=== PATIENT | male | born 1990 | race Hispanic/Latino ===

== ENCOUNTER 2018-02-14 22:00 | Emergency (ER) | payer SELFPAY ==
--- NOTE | 2018-02-14 23:55 | EDPHYS ---
Physician Documentation [facility] Name: Kenny Navarro Age: 27 yrs Sex: Male : 1990 Arrival Date: 02/14/2018 Time: 22:04 Bed 20 Private MD: ED Physician Kevon Campbell HPI: 02/15 07:52 This 27 yrs old Male presents to ER via Ambulatory with complaints of Insect wa Bite. 07:52 the patient presents with a swollen area of the R upper lip. Description: The affected wa area is small, localized, erythematous, swollen. Onset: The symptoms/episode began/occurred yesterday. Possible cause(s): unknown. Associated signs and symptoms: Pertinent positives: swelling, pain. Modifying factors: the symptoms are alleviated by nothing, the symptoms are aggravated by nothing. Severity of symptoms: At their worst the symptoms were mild, in the emergency department the symptoms are unchanged. The patient has not experienced similar symptoms in the past. The patient has not recently seen a physician. Historical: - Allergies: 02/14 22:15 No Known Allergies; tl2 - Home Meds: 22:15 Zantac 300 mg Oral tab 1 tab once daily [Active]; tl2 - PMHx: 22:15 H Pylori; tl2 - PSHx: 22:15 None; tl2 - Immunization history:: Adult Immunizations up to date. - Social history:: Smoking status: Patient uses tobacco products, smokes one-half pack cigarettes per day. - Ebola Screening: : No symptoms or risks identified at this time. - Family history:: not pertinent. - Hospitalizations: : No recent hospitalization is reported. ROS: 02/15 07:54 Constitutional: Negative for fever, chills, and weight loss, Eyes: Negative for injury, wa pain, redness, and discharge, ENT: Negative for injury, pain, and discharge, Neck: Negative for injury, pain, and swelling, Cardiovascular: Negative for chest pain, palpitations, and edema, Respiratory: Negative for shortness of breath, cough, wheezing, and pleuritic chest pain, Abdomen/GI: Negative for abdominal pain, nausea, vomiting, diarrhea, and constipation, Back: Negative for injury and pain, : Negative for injury, bleeding, discharge, and swelling, MS/Extremity: Negative for injury and deformity, Neuro: Negative for headache, weakness, numbness, tingling, and seizure. Skin: Positive for small tender follicular lesion noted R upper lip. tender. All other systems are negative. Exam: 07:55 Constitutional: This is a well developed, well nourished patient who is awake, alert, wa and in no acute distress. Head/Face: Normocephalic, atraumatic. Eyes: Pupils equal round and reactive to light, extra-ocular motions intact. Lids and lashes normal. Conjunctiva and sclera are non-icteric and not injected. Cornea within normal limits. Periorbital areas with no swelling, redness, or edema. ENT: Nares patent. No nasal discharge, no septal abnormalities noted. Tympanic membranes are normal and external auditory canals are clear. Oropharynx with no redness, swelling, or masses, exudates, or evidence of obstruction, uvula midline. Mucous membranes moist. Neck: Trachea midline, no thyromegaly or masses palpated, and no cervical lymphadenopathy. Supple, full range of motion without nuchal rigidity, or vertebral point tenderness. No Meningismus. Chest/axilla: Normal chest wall appearance and motion. Nontender with no deformity. No lesions are appreciated. Cardiovascular: Regular rate and rhythm with a normal S1 and S2. No gallops, murmurs, or rubs. Normal PMI, no JVD. No pulse deficits. Respiratory: Lungs have equal breath sounds bilaterally, clear to auscultation and percussion. No rales, rhonchi or wheezes noted. No increased work of breathing, no retractions or nasal flaring. Abdomen/GI: Soft, non-tender, with normal bowel sounds. No distension or tympany. No guarding or rebound. No evidence of tenderness throughout. Back: No spinal tenderness. No costovertebral tenderness. Full range of motion. MS/ Extremity: Pulses equal, no cyanosis. Neurovascular intact. Full, normal range of motion. Neuro: Awake and alert, GCS 15, oriented to person, place, time, and situation. Cranial nerves II-XII grossly intact. Motor strength 5/5 in all extremities. Sensory grossly intact. Cerebellar exam normal. Normal gait. Psych: Awake, alert, with orientation to person, place and time. Behavior, mood, and affect are within normal limits. 07:55 Skin: lesion(s), noted, and can be described as small tender erythematous follicular lesion R upper lip. Vital Signs: 02/14 22:15 BP 166 / 72; Pulse 77; Resp 18; Temp 98.1(O); Pulse Ox 99% on R/A; Weight 124.74 kg; 2 Height 5 ft. 11 in. (180.34 cm); Pain 2/10; 23:32 BP 125 / 55; Pulse 73; Resp 18; Pulse Ox 98% on R/A; tl2 02/15 00:28 BP 117 / 48; Pulse 79; Resp 18; Pulse Ox 98% on R/A; tl2 02/14 22:15 Body Mass Index 38.35 (124.74 kg, 180.34 cm) tl2 MDM: 02/14 22:30 Patient medically screened. ms 02/15 07:56 Differential diagnosis: follicular lesion. abx. . Data reviewed: vital signs, nurses wa notes. Administered Medications: No medications were administered Disposition: 02/14/18 23:54 Discharged to Home. Impression: Acute facial folliculitis. - Condition is Stable. - Discharge Instructions: Folliculitis. - Prescriptions for Bactrim DS 800- 160 mg Oral Tablet - take 1 tablet by ORAL route every 12 hours for 5 days; 10 tablet. - Medication Reconciliation Form, Thank You Letter, Antibiotic Education, Prescription Opioid Use form. - Follow up: Private Physician; When: 2 - 3 days; Reason: Recheck today's complaints. - Problem is new. - Symptoms have improved. Signatures: Anuja Kiser RN RN [facility] Kevon Campbell MD MD ms Corrections: (The following items were deleted from the chart) 00:30 02/14 23:54 02/14/2018 23:54 Discharged to Home. Impression: Acute facial folliculitis. 2 Condition is Stable. Forms are Medication Reconciliation Form, Thank You Letter, Antibiotic Education, Prescription Opioid Use. Follow up: Private Physician; When: 2 - 3 days; Reason: Recheck today's complaints. Problem is new. Symptoms have improved. wa
--- NOTE | 2018-02-14 23:55 | ER ---
Nurse's Notes [facility] Name: Kenny Navarro Age: 27 yrs Sex: Male : 1990 Arrival Date: 02/14/2018 Time: 22:04 Bed 20 Private MD: Diagnosis: Acute facial folliculitis Presentation: 02/14 22:13 Presenting complaint: Patient states: I have a bite on my upper lip, I noticed tl2 yesterday morning that it was getting bigger. left side of lip appears swollen. Pt denies fever. Transition of care: patient was not received from another setting of care. Onset of symptoms was February 13, 2018. Risk Assessment: Do you want to hurt yourself or someone else? Patient reports no desire to harm self or others. Initial Sepsis Screen: Does the patient meet any 2 criteria? No. Patient's initial sepsis screen is negative. Does the patient have a suspected source of infection? No. Patient's initial sepsis screen is negative. Care prior to arrival: None. 22:13 Method Of Arrival: Ambulatory tl2 22:13 Acuity: ANG 4 tl2 Triage Assessment: 22:15 Bite description: bite sustained to mouth is superficial, was sustained 1 day ago. by tl2 an unknown animal. General: Appears in no apparent distress. uncomfortable, Behavior is calm, cooperative, appropriate for age. Pain: Complains of pain in upper lip. Neuro: Level of Consciousness is awake, alert, obeys commands, Oriented to person, place, time, situation. Cardiovascular: Denies chest pain. Respiratory: Airway is patent Respiratory effort is even, unlabored, Respiratory pattern is regular, symmetrical. GI: No deficits noted. : No deficits noted. Derm: Skin is pink, warm \T\ dry. Abscess located on upper lip is size of tip of pen. Historical: - Allergies: 22:15 No Known Allergies; tl2 - Home Meds: 22:15 Zantac 300 mg Oral tab 1 tab once daily [Active]; tl2 - PMHx: 22:15 H Pylori; tl2 - PSHx: 22:15 None; tl2 - Immunization history:: Adult Immunizations up to date. - Social history:: Smoking status: Patient uses tobacco products, smokes one-half pack cigarettes per day. - Ebola Screening: : No symptoms or risks identified at this time. - Family history:: not pertinent. - Hospitalizations: : No recent hospitalization is reported. Screenin:18 Abuse screen: Denies threats or abuse. Nutritional screening: No deficits noted. tl2 Tuberculosis screening: No symptoms or risk factors identified. Fall Risk None identified. Assessment: 22:15 General: see triage assessment. tl2 23:32 Reassessment: Awaiting orders from . 2 02/15 00:28 Reassessment: Patient appears in no apparent distress at this time. Patient and/or tl2 family updated on plan of care and expected duration. Pain level reassessed. Patient is alert, oriented x 3, equal unlabored respirations, skin warm/dry/pink. Pt verbalized understanding of discharge instructions, need for follow up and prescription usage. Vital Signs: 02/14 22:15 BP 166 / 72; Pulse 77; Resp 18; Temp 98.1(O); Pulse Ox 99% on R/A; Weight 124.74 kg; tl2 Height 5 ft. 11 in. (180.34 cm); Pain 2/10; 23:32 BP 125 / 55; Pulse 73; Resp 18; Pulse Ox 98% on R/A; tl2 02/15 00:28 BP 117 / 48; Pulse 79; Resp 18; Pulse Ox 98% on R/A; tl2 02/14 22:15 Body Mass Index 38.35 (124.74 kg, 180.34 cm) tl2 ED Course: 02/14 22:04 Patient arrived in ED. es 22:15 Triage completed. tl2 22:15 Arm band placed on right wrist. tl2 22:18 Patient has correct armband on for positive identification. Bed in low position. Call tl2 light in reach. Side rails up X 1. 22:30 Kevon Campbell MD is Attending Physician. wa 23:31 Anuja Kiser RN is Primary Nurse. tl2 02/15 00:28 No provider procedures requiring assistance completed. Patient did not have IV access tl2 during this emergency room visit. Administered Medications: No medications were administered Outcome: 02/14 23:54 Discharge ordered by . ms 02/15 00:28 Discharged to home ambulatory. tl2 Condition: stable Discharge instructions given to patient, Instructed on discharge instructions, follow up and referral plans. medication usage, Demonstrated understanding of instructions, follow-up care, medications, Prescriptions given X 1. 00:30 Patient left the ED. tl2 Signatures: Jeannette Stern Taylor RN RN tl2 Kevon Campbell MD MD ms
== END 2018-02-15 00:30 | disposition home or self-care (01) ==
LOC: ER 22:00
DX: L73.8 Other specified follicular disorders (principal); F17.210 Nicotine dependence, cigarettes, uncomplicated
CPT/HCPCS: 99282

== ENCOUNTER 2018-06-13 23:08 | Emergency (ER) | payer SELFPAY ==
[2018-06-14] MEDS ORDERED: IBUPROFEN 400 MG TAB ONE
[2018-06-14] MEDS ORDERED: IBUPROFEN 200 MG TAB PO ONE
--- NOTE | 2018-06-14 00:09 | EDPHYS ---
Physician Documentation [facility] Name: Kenny Navarro Age: 27 yrs Sex: Male : 1990 Arrival Date: 06/13/2018 Time: 23:11 Bed 27 Private MD: None, None ED Physician Ayan Fisher HPI: 06/14 00:00 This 27 yrs old Male presents to ER via Ambulatory with complaints of pm1 Headache, Fever. 02:00 The patient presents with sore throat. The patient describes throat pain as constant. pm1 Onset: The symptoms/episode began/occurred yesterday. Severity of symptoms: in the emergency department the symptoms are actually worse. Modifying factors: The symptoms are alleviated by nothing, the symptoms are aggravated by foods, swallowing, Patient's oral intake status: good Denies contact with similarly ill indivduals. Associated signs and symptoms: Pertinent positives: fever, headache, Pertinent negatives chest pain, cough, earache, nausea, shortness of breath, vomiting. The patient has experienced similar episodes in the past, a few times. The patient has not recently seen a physician. Historical: - Allergies: 06/13 23:19 No Known Allergies; ak1 - Home Meds: 23:19 Zantac 300 mg Oral tab 1 tab once daily [Active]; ak1 - PMHx: 23:19 H Pylori; ak1 - PSHx: 23:19 None; ak1 - Immunization history:: Adult Immunizations unknown. - Social history:: Smoking status: Patient uses tobacco products, smokes one-half pack cigarettes per day. - Ebola Screening: : No symptoms or risks identified at this time. ROS: 06/14 02:00 Eyes: Negative for injury, pain, redness, and discharge. pm1 Neck: Negative for injury, pain, and swelling, Cardiovascular: Negative for chest pain, palpitations, and edema, Respiratory: Negative for shortness of breath, cough, wheezing, and pleuritic chest pain, Abdomen/GI: Negative for abdominal pain, nausea, vomiting, diarrhea, and constipation, Back: Negative for injury and pain, MS/Extremity: Negative for injury and deformity, Skin: Negative for injury, rash, and discoloration. Constitutional: Positive for fever, Negative for poor PO intake. ENT: Positive for sore throat, Negative for ear pain, difficulty swallowing, difficulty handling secretions, hoarseness. Neuro: Positive for headache, Negative for numbness, tingling. Exam: 02:00 Constitutional: This is a well developed, well nourished patient who is awake, alert, pm1 and in no acute distress. Head/Face: Normocephalic, atraumatic. Eyes: Pupils equal round and reactive to light, extra-ocular motions intact. Lids and lashes normal. Conjunctiva and sclera are non-icteric and not injected. Cornea within normal limits. Periorbital areas with no swelling, redness, or edema. 02:00 Neck: Trachea midline, no thyromegaly or masses palpated, and no cervical lymphadenopathy. Supple, full range of motion without nuchal rigidity, or vertebral point tenderness. No Meningismus. Chest/axilla: Normal chest wall appearance and motion. Nontender with no deformity. No lesions are appreciated. Cardiovascular: Regular rate and rhythm with a normal S1 and S2. No gallops, murmurs, or rubs. Normal PMI, no JVD. No pulse deficits. Respiratory: Lungs have equal breath sounds bilaterally, clear to auscultation and percussion. No rales, rhonchi or wheezes noted. No increased work of breathing, no retractions or nasal flaring. Abdomen/GI: Soft, non-tender, with normal bowel sounds. No distension or tympany. No guarding or rebound. No evidence of tenderness throughout. Back: No spinal tenderness. No costovertebral tenderness. Full range of motion. Skin: Warm, dry with normal turgor. Normal color with no rashes, no lesions, and no evidence of cellulitis. MS/ Extremity: Pulses equal, no cyanosis. Neurovascular intact. Full, normal range of motion. 02:00 ENT: External ear(s): are unremarkable, Ear canal(s): are normal, TM's: are normal, Nose: is normal, Mouth: is normal, Posterior pharynx: Airway: no evidence of obstruction, patent, Tonsils: bilaterally enlarged, with erythema, no exudate, no ulcerations, peritonsillar mass, is not appreciated, pooling of secretions, is not appreciated. 02:00 Neuro: Orientation: is normal, Motor: is normal, moves all fours, Gait: is steady, at a normal pace, without difficulty. Vital Signs: 06/13 23:19 BP 151 / 93; Pulse 116; Resp 20; Temp 101.0(O); Pulse Ox 98% on R/A; Weight 127.01 kg ak1 (R); Height 5 ft. 11 in. (180.34 cm) (R); Pain 10; 06/14 00:42 BP 144 / 89; Pulse 103; Resp 20; Temp 99.2; Pulse Ox 99% on R/A; Pain 9/10; aa1 06/13 23:19 Body Mass Index 39.05 (127.01 kg, 180.34 cm) [facility] MDM: 06/13 23:42 Patient medically screened. pm1 06/14 00:08 Data reviewed: vital signs. Data interpreted: Pulse oximetry: on room air is 98 %. pm1 Interpretation: normal. Counseling: I had a detailed discussion with the patient and/or guardian regarding: the historical points, exam findings, and any diagnostic results supporting the discharge/admit diagnosis, lab results, the need for outpatient follow up, to return to the emergency department if symptoms worsen or persist or if there are any questions or concerns that arise at home. 06/13 23:18 Order name: Flu; Complete Time: 00:08 ak1 06/13 23:18 Order name: Strep; Complete Time: 00:08 [facility] Administered Medications: 06/13 23:54 Drug: Ibuprofen 600 mg Route: PO; ak1 06/14 00:31 Follow up: Response: No adverse reaction; Marked relief of symptoms mg2 00:31 Drug: Decadron - Dexamethasone 10 mg {Note: given orally with juice.} Route: IVP; [place] [facility] [place]; 00:31 Follow up: Response: No adverse reaction; Medication administered at discharge. mg2 Disposition: 06/14/18 00:08 Discharged to Home. Impression: Streptococcal pharyngitis. - Condition is Stable. - Discharge Instructions: Strep Throat. - Prescriptions for Amoxicillin 500 mg Oral Capsule - take 1 capsule by ORAL route every 8 hours for 10 days; 30 tablet. - Medication Reconciliation Form, Thank You Letter, Antibiotic Education form. - Follow up: Emergency Department; When: As needed; Reason: Worsening of condition. Follow up: Private Physician; When: 2 - 3 days; Reason: Recheck today's complaints, Continuance of care, Re-evaluation by your physician. - Problem is new. - Symptoms have improved. Addendum: 06/16/2018 04:06 Co-signature as Attending Physician, Ayan Fisher MD. g s Signatures: Dispatcher [employer] Consuelo Osullivan RN RN aa1 Erica Chauhan RN RN ak1 Jerod Rodriguez, SPINNER FIXER SPINNER FIXER pm1 Ayan Fisher MD MD Nilton An RN RN mg2 Corrections: (The following items were deleted from the chart) 06/14 00:43 00:08 06/14/2018 00:08 Discharged to Home. Impression: Streptococcal pharyngitis. aa1 Condition is Stable. Forms are Medication Reconciliation Form, Thank You Letter, Antibiotic Education, Prescription Opioid Use. Follow up: Emergency Department; When: As needed; Reason: Worsening of condition. Follow up: Private Physician; When: 2 - 3 days; Reason: Recheck today's complaints, Continuance of care, Re-evaluation by your physician. Problem is new. Symptoms have improved. pm1
--- NOTE | 2018-06-14 00:09 | ER ---
Nurse's Notes [facility] Name: Kenny Navarro Age: 27 yrs Sex: Male : 1990 Arrival Date: 06/13/2018 Time: 23:11 Bed 27 Private MD: None, None Diagnosis: Streptococcal pharyngitis Presentation: 06/13 23:18 Presenting complaint: Patient states: fever, throat pain, body aches, headache since ak1 Tuesday. pt had Tylenol at 1800. Transition of care: patient was not received from another setting of care. Onset of symptoms was June 12, 2018. Initial Sepsis Screen: Does the patient have a suspected source of infection?. Care prior to arrival: None. 23:18 Acuity: ANG 4 ak1 23:18 Method Of Arrival: Ambulatory ak1 23:30 Risk Assessment: Do you want to hurt yourself or someone else? Patient reports no aa1 desire to harm self or others. Initial Sepsis Screen: Does the patient meet any 2 criteria? Temp <36.0*C (96.8*F)) or > 38.3*C (100.9*F). HR > 90 bpm. Does the patient have a suspected source of infection? No. Patient's initial sepsis screen is negative. Triage Assessment: 23:19 Headache History: The patient has had previous headaches and this one is less severe ak1 than previous episodes. General: Appears uncomfortable, Behavior is cooperative. Pain: Pain currently is 10 out of 10 on a pain scale. Pain began Tuesday Also complains of photophobia, sleeplessness. EENT: Reports throat pain. Neuro: Level of Consciousness is awake, alert, obeys commands, Oriented to person, place, time, situation, Dietary Aide Teacher are equal bilaterally Moves all extremities. Gait is steady, Speech is normal. Cardiovascular: No deficits noted. Respiratory: No deficits noted. GI: No signs and/or symptoms were reported involving the gastrointestinal system. : No signs and/or symptoms were reported regarding the genitourinary system. Derm: Reports fever. Musculoskeletal: Reports body aches. Historical: - Allergies: 23:19 No Known Allergies; ak1 - Home Meds: 23:19 Zantac 300 mg Oral tab 1 tab once daily [Active]; ak1 - PMHx: 23:19 H Pylori; ak1 - PSHx: 23:19 None; ak1 - Immunization history:: Adult Immunizations unknown. - Social history:: Smoking status: Patient uses tobacco products, smokes one-half pack cigarettes per day. - Ebola Screening: : No symptoms or risks identified at this time. Screenin:30 Abuse screen: Denies threats or abuse. Denies injuries from another. Nutritional aa1 screening: No deficits noted. Tuberculosis screening: No symptoms or risk factors identified. Fall Risk None identified. Assessment: 23:30 General: Appears in no apparent distress. uncomfortable, Behavior is calm, cooperative, aa1 appropriate for age. Pain: Complains of pain in throat and head Quality of pain is described as aching, throbbing, Pain began 1 day ago. Is continuous. Neuro: Level of Consciousness is awake, alert, obeys commands, Oriented to person, place, time, situation, Moves all extremities. Full function Gait is steady, Speech is normal, Reports headache. Respiratory: Airway is patent Respiratory effort is even, unlabored, Respiratory pattern is regular, symmetrical. GI: No signs and/or symptoms were reported involving the gastrointestinal system. : No signs and/or symptoms were reported regarding the genitourinary system. EENT: Reports difficulty swallowing pain when swallowing. Derm: Skin is intact, is healthy with good turgor, Skin is pink, warm \T\ dry. Musculoskeletal: Circulation, motion, and sensation intact. Capillary refill < 3 seconds. 06/14 00:42 Reassessment: Patient appears in no apparent distress at this time. Patient is alert, aa1 oriented x 3, equal unlabored respirations, skin warm/dry/pink. Discussed d/c \T\ f/u instructions with pt \T\ family; denies questions or concerns at this time. Vital Signs: 06/13 23:19 BP 151 / 93; Pulse 116; Resp 20; Temp 101.0(O); Pulse Ox 98% on R/A; Weight 127.01 kg ak1 (R); Height 5 ft. 11 in. (180.34 cm) (R); Pain 04/26; 06/14 00:42 BP 144 / 89; Pulse 103; Resp 20; Temp 99.2; Pulse Ox 99% on R/A; Pain 9/10; aa1 06/13 23:19 Body Mass Index 39.05 (127.01 kg, 180.34 cm) ak1 ED Course: 06/13 23:11 Patient arrived in ED. es 23:11 None, None is Private Physician. es 23:19 Triage completed. ak1 23:19 Arm band placed on Patient placed in an exam room, on a stretcher, Patient notified of ak1 wait time. 23:30 Patient has correct armband on for positive identification. Bed in low position. Call aa1 light in reach. Pulse ox on. NIBP on. 23:34 Jerod Rodriguez NP is PHCP. pm1 23:34 Ayan Fisher MD is Attending Physician. pm1 23:57 Consuelo Calzada, BELL is Primary Nurse. aa1 06/14 00:42 No provider procedures requiring assistance completed. Patient did not have IV access aa1 during this emergency room visit. Administered Medications: 06/13 23:54 Drug: Ibuprofen 600 mg Route: PO; ak1 06/14 00:31 Follow up: Response: No adverse reaction; Marked relief of symptoms mg2 00:31 Drug: Decadron - Dexamethasone 10 mg {Note: given orally with juice.} Route: IVP; Site: [facility] [place] Other; 00:31 Follow up: Response: No adverse reaction; Medication administered at discharge. mg2 Outcome: 00:08 Discharge ordered by MD. pm1 00:42 Discharged to home ambulatory, with family. aa1 00:42 Condition: good 00:42 Discharge instructions given to patient, family, Instructed on discharge instructions, follow up and referral plans. medication usage, Demonstrated understanding of instructions, follow-up care, medications, Prescriptions given X 1. 00:43 Patient left the ED. aa1 Signatures: Consuelo Calzada, RN RN aa1 Jeannette Stern Amber, RN RN ak1 Jerod Rodriguez NP LIVESTOCK FEEDER pm1 Nilton An RN RN mg2
[2018-06-14] MEDS ORDERED: DEXAMETHASONE 10 MG/ML VIAL ONE (00:32)
== END 2018-06-14 00:43 | disposition home or self-care (01) ==
LOC: ER 23:08
DX: J02.0 Streptococcal pharyngitis (principal); F17.210 Nicotine dependence, cigarettes, uncomplicated
CPT/HCPCS: 87081; 87804; 96374; 99283; J1100

== ENCOUNTER 2018-06-22 19:16 | Emergency (ER) | payer SELFPAY ==
[2018-06-22] MEDS ORDERED: DIPHENHYDRAMINE 25 MG TAB/CAP ONE (20:28)
[2018-06-22] MEDS ORDERED: METHYLPREDNISOLONE 125 MG INJ ONE (20:28)
[2018-06-22] MEDS ORDERED: NA CHLORIDE 0.9% 1,000 ML ONE (20:28)
[2018-06-22] MEDS ORDERED: FAMOTIDINE 20 MG/2 ML VIAL IV ONE (20:28)
[2018-06-22] MEDS ORDERED: DIPHENHYDRAMINE 50 MG/ML VIAL ONE (20:31)
--- NOTE | 2018-06-22 22:18 | ER ---
Nurse's Notes [facility] Name: Kenny Navarro Age: 27 yrs Sex: Male : 1990 Arrival Date: 06/22/2018 Time: 19:17 Bed 28 Private MD: Diagnosis: Dermatitis, unspecified Presentation: 06/22 19:37 Presenting complaint: Patient states: I have been on amoxicillin since last Tuesday la1 and I started with a rash on Tuesday, now it is very itchy and I feel a little SOB. Transition of care: patient was not received from another setting of care. Onset: The symptoms/episode began/occurred 3 day(s) ago. Anaphylaxis evaluation, the patient reports or I have noted the following symptoms which indicate a significant risk of anaphylaxis:. Onset of symptoms was June 22, 2018. Risk Assessment: Do you want to hurt yourself or someone else? Patient reports no desire to harm self or others. Initial Sepsis Screen: Does the patient meet any 2 criteria? No. Patient's initial sepsis screen is negative. Does the patient have a suspected source of infection? No. Patient's initial sepsis screen is negative. Care prior to arrival: None. 19:37 Method Of Arrival: Ambulatory la1 19:37 Acuity: ANG 3 la1 Historical: - Allergies: 19:38 No Known Allergies; la1 - Home Meds: 20:06 Zantac 300 mg Oral tab 1 tab once daily [Active]; rv - PMHx: 19:38 H Pylori; la1 - PSHx: 20:06 None; rv - Immunization history:: Adult Immunizations up to date. - Social history:: Smoking status: Patient uses tobacco products, smokes one-half pack cigarettes per day. - Ebola Screening: : No symptoms or risks identified at this time. Screenin:05 Abuse screen: Denies threats or abuse. Denies injuries from another. Nutritional rv screening: No deficits noted. Tuberculosis screening: No symptoms or risk factors identified. Fall Risk None identified. Assessment: 20:03 General: Appears in no apparent distress. comfortable, Behavior is calm, cooperative. rv Pain: Denies pain. Neuro: Level of Consciousness is awake, alert, obeys commands, Oriented to person, place, time, situation. Cardiovascular: Capillary refill < 3 seconds. Respiratory: Airway is patent Respiratory effort is even, Breath sounds are clear bilaterally. GI: No signs and/or symptoms were reported involving the gastrointestinal system. : No signs and/or symptoms were reported regarding the genitourinary system. EENT: No signs and/or symptoms were reported regarding the EENT system. Derm: Rash noted that is itchy, papular, red, raised, vesicular. Musculoskeletal: No signs and/or symptoms reported regarding the musculoskeletal system. 21:00 Reassessment: Patient appears in no apparent distress at this time. rv 22:16 Reassessment: Patient appears in no apparent distress at this time. Patient and/or rv family updated on plan of care and expected duration. Pain level reassessed. Vital Signs: 19:38 BP 162 / 115; Pulse 90; Resp 16; Temp 97.5; Pulse Ox 98% on R/A; Weight 127.01 kg; la1 Height 5 ft. 11 in. (180.34 cm); 20:00 BP 159 / 129; Pulse 98; Resp 18; Pulse Ox 100% on R/A; rv 20:30 BP 173 / 104; Pulse 125; Resp 17; Pulse Ox 98% on R/A; rv 20:30 BP 159 / 83; Pulse 87; Resp 16; Pulse Ox 100% on R/A; rv 21:00 BP 148 / 85; Pulse 85; Resp 16; Pulse Ox 100% on R/A; rv 21:30 BP 131 / 72; Pulse 82; Resp 15; Pulse Ox 97% on R/A; rv 22:00 BP 141 / 79; Pulse 77; Resp 17; Pulse Ox 100% on R/A; rv 19:38 Body Mass Index 39.05 (127.01 kg, 180.34 cm) la1 ED Course: 19:17 Patient arrived in ED. es 19:38 Triage completed. la1 19:38 Arm band placed on right wrist. la1 19:40 Ramos Kumar PA is PHCP. cp 19:40 Ayan Fisher MD is Attending Physician. cp 20:06 Patient has correct armband on for positive identification. Placed in gown. Bed in low rv position. Call light in reach. Side rails up X 1. Pulse ox on. NIBP on. 20:15 Inserted saline lock: 20 gauge in left antecubital area, using aseptic technique. rv 22:25 No provider procedures requiring assistance completed. IV discontinued, bleeding rv controlled, No redness/swelling at site. Pressure dressing applied. Administered Medications: 20:15 Drug: SOLU-Medrol 125 mg Route: IVP; Site: left antecubital; rv 22:24 Follow up: Response: No adverse reaction rv 20:15 Drug: Pepcid 20 mg Route: IVP; Site: left antecubital; rv 22:23 Follow up: Response: No adverse reaction rv 20:15 Drug: NS 0.9% 1000 ml Route: IV; Rate: 1 bolus; Site: left antecubital; rv 22:23 Follow up: IV Status: Completed infusion rv 20:15 Drug: Benadryl 50 mg Route: IVP; Site: left antecubital; rv 22:24 Follow up: Response: Marked relief of symptoms rv 20:58 CANCELLED (SHIFTED TO IV): Benadryl 50 mg PO once rv Outcome: 22:17 Discharge ordered by MD. cp 22:25 Discharged to home ambulatory. rv 22:25 Condition: improved 22:25 Discharge instructions given to patient, Instructed on discharge instructions, follow up and referral plans. medication usage, Demonstrated understanding of instructions, follow-up care, medications, Prescriptions given X 3. 22:25 Patient left the ED. rv Signatures: Jeannette Stern Lee, RN RN la1 Ramos Kumar PA PA cp Giovani Worrell, RN RN rv
--- NOTE | 2018-06-22 22:18 | EDPHYS ---
Physician Documentation [facility] Name: Kenny Navarro Age: 27 yrs Sex: Male : 1990 Arrival Date: 06/22/2018 Time: 19:17 Bed 28 Private MD: ED Physician Ayan Fisher HPI: 06/22 20:15 This 27 yrs old Male presents to ER via Ambulatory with complaints of Allergic cp Reaction, Itching, Rash. 20:15 The patient presents with itching, rash, of the right forearm. cp 20:15 Onset: The symptoms/episode began/occurred 6 day(s) ago. cp 20:15 Associated signs and symptoms: Pertinent positives: shortness of breath, Pertinent cp negatives: chest pain, dysphagia, fever, headache, vomiting. Possible causes: antibiotics, amoxicillin. 20:15 At home the patient or guardian has treated the symptoms with calamine lotion. Severity cp of symptoms: in the emergency department the symptoms are worse moderately. Patient reports he has been taking prescribed Amoxicillin for strep throat since last Tuesday. Noticed rash to right forearm 2 days later that has continued to worsen. Reports itching and shortness of breath. Historical: - Allergies: 19:38 No Known Allergies; la1 - Home Meds: 20:06 Zantac 300 mg Oral tab 1 tab once daily [Active]; rv - PMHx: 19:38 H Pylori; la1 - PSHx: 20:06 None; rv - Immunization history:: Adult Immunizations up to date. - Social history:: Smoking status: Patient uses tobacco products, smokes one-half pack cigarettes per day. - Ebola Screening: : No symptoms or risks identified at this time. ROS: 20:20 Constitutional: Negative for body aches, chills, fever. cp 20:20 Eyes: Negative for injury, pain, redness, and discharge. cp 20:20 ENT: Negative for drainage from ear(s), ear pain, sore throat, difficulty swallowing, difficulty handling secretions. 20:20 Respiratory: Positive for shortness of breath, Negative for wheezing. 20:20 Abdomen/GI: Negative for abdominal pain, nausea, vomiting, and diarrhea. 20:20 Skin: Positive for rash. 20:20 Neuro: Negative for altered mental status, headache, weakness. 20:20 All other systems are negative. Exam: 20:25 Constitutional: The patient appears in no acute distress, alert, awake, non-toxic, well cp developed, well nourished. 20:25 Head/Face: Normocephalic, atraumatic. cp 20:25 Eyes: Periorbital structures: appear normal, Pupils: equal, round, and reactive to light and accomodation, Extraocular movements: intact throughout, Conjunctiva: normal, no exudate, no injection, Sclera: no appreciated abnormality, Lids and lashes: appear normal, bilaterally. 20:25 ENT: External ear(s): are unremarkable, Ear canal(s): are normal, clear, TM's: bulging, is not appreciated, bilaterally, dullness, bilaterally, erythema, is not appreciated, bilaterally, Nose: is normal, Mouth: Lips: moist, Oral mucosa: pink and intact, moist, Posterior pharynx: is normal, airway is patent, no erythema, no exudate, Voice: is normal. 20:25 Neck: ROM/movement: is normal, is supple, without pain, no range of motions limitations, no meningismus, no nuchal rigidity. 20:25 Chest/axilla: Inspection: rash, of the left lateral anterior chest Palpation: is normal, no crepitus, no tenderness. 20:25 Cardiovascular: Rate: normal, Rhythm: regular. 20:25 Respiratory: the patient does not display signs of respiratory distress, Respirations: normal, no use of accessory muscles, no retractions, no splinting, no tachypnea, labored breathing, is not present, Breath sounds: are clear throughout, no decreased breath sounds, no stridor, no wheezing. 20:25 Abdomen/GI: Bowel sounds: active, all quadrants, Palpation: abdomen is soft and non-tender, in all quadrants. 20:25 Back: pain, is absent, ROM is normal. 20:25 Skin: cellulitis, is not appreciated, rash can be described as bullous, erythematous, on the right forearm. Vital Signs: 19:38 BP 162 / 115; Pulse 90; Resp 16; Temp 97.5; Pulse Ox 98% on R/A; Weight 127.01 kg; la1 Height 5 ft. 11 in. (180.34 cm); 20:00 BP 159 / 129; Pulse 98; Resp 18; Pulse Ox 100% on R/A; rv 20:30 BP 173 / 104; Pulse 125; Resp 17; Pulse Ox 98% on R/A; rv 20:30 BP 159 / 83; Pulse 87; Resp 16; Pulse Ox 100% on R/A; rv 21:00 BP 148 / 85; Pulse 85; Resp 16; Pulse Ox 100% on R/A; rv 21:30 BP 131 / 72; Pulse 82; Resp 15; Pulse Ox 97% on R/A; rv 22:00 BP 141 / 79; Pulse 77; Resp 17; Pulse Ox 100% on R/A; rv 19:38 Body Mass Index 39.05 (127.01 kg, 180.34 cm) la1 MDM: 19:40 Patient medically screened. cp 21:00 Differential diagnosis: anaphylaxis, angioedema, urticaria, drug reaction, Toño's cp Cain, erythema multiform, toxic epidermal necrolysis. 22:15 Data reviewed: vital signs, nurses notes. cp 22:15 Counseling: I had a detailed discussion with the patient and/or guardian regarding: the cp historical points, exam findings, and any diagnostic results supporting the discharge/admit diagnosis, to return to the emergency department if symptoms worsen or persist or if there are any questions or concerns that arise at home. Response to treatment: the patient's symptoms have markedly improved after treatment, VSS. Patient reports he is feeling better. Rash dressed on right forearm. Will discharge to home for continued monitoring. 12 20:13 Order name: IV; Complete Time: 20:59 cp 06/22 20:14 Order name: Wound dressing: right arm with bacitracin; Complete Time: 20:57 cp Administered Medications: 20:15 Drug: SOLU-Medrol 125 mg Route: IVP; Site: left antecubital; rv 22:24 Follow up: Response: No adverse reaction rv 20:15 Drug: Pepcid 20 mg Route: IVP; Site: left antecubital; rv 22:23 Follow up: Response: No adverse reaction rv 20:15 Drug: NS 0.9% 1000 ml Route: IV; Rate: 1 bolus; Site: left antecubital; rv 22:23 Follow up: IV Status: Completed infusion rv 20:15 Drug: Benadryl 50 mg Route: IVP; Site: left antecubital; rv 22:24 Follow up: Response: Marked relief of symptoms rv 20:58 CANCELLED (SHIFTED TO IV): Benadryl 50 mg PO once rv Disposition: 06/22/18 22:17 Discharged to Home. Impression: Dermatitis, unspecified. - Condition is Stable. - Discharge Instructions: Drug Rash, Drug Allergy. - Prescriptions for Prednisone 20 mg Oral Tablet - take 3 tablet by ORAL route once daily for 5 days; 15 tablet. Bactroban 2 % Topical Cream - Apply to affected area 1 application by TOPICAL route every 12 hours As needed apply to rash on right forearm as directed; 15 gram. Pepcid 20 mg Oral Tablet - take 1 tablet by ORAL route every 12 hours for 5 days; 10 tablet. - Medication Reconciliation Form, Thank You Letter, Antibiotic Education, Prescription Opioid Use form. - Follow up: Private Physician; When: 2 - 3 days; Reason: Recheck today's complaints. - Problem is new. - Symptoms have improved. Addendum: 06/26/2018 10:26 Co-signature as Attending Physician, Ayan Fisher MD. g s Signatures: Anil El RN RN la1 Ramos Kumar PA PA cp Ayan Fisher MD MD Giovani Worrell RN RN rv Corrections: (The following items were deleted from the chart) 06/22 20:58 20:13 Benadryl 50 mg PO once ordered. cp rv 22:25 22:17 06/22/2018 22:17 Discharged to Home. Impression: Dermatitis, unspecified. rv Condition is Stable. Forms are Medication Reconciliation Form, Thank You Letter, Antibiotic Education, Prescription Opioid Use. Follow up: Private Physician; When: 2 - 3 days; Reason: Recheck today's complaints. Problem is new. Symptoms have improved. cp
== END 2018-06-22 22:25 | disposition home or self-care (01) ==
LOC: ER 19:16
DX: L30.9 Dermatitis, unspecified (principal); F17.210 Nicotine dependence, cigarettes, uncomplicated
CPT/HCPCS: 96361; 96374; 96375; 99284; J2930; J7030